=== PATIENT | female | born 1955 | race Two or more races ===

== ENCOUNTER 2017-02-02 06:48 | Day surgery (SDC) | payer OTHER ==
[2017-02-01 13:50] VITALS: Ht 149.9 cm; Wt 77.5 kg
--- NOTE | 2017-02-01 17:15 | PREOPHP ---
DATE OF ADMISSION: 02/02/2017 HISTORY OF PRESENT ILLNESS: This 62-year-old patient is admitted for elective cataract surgery of t he left eye. Patient has had progressive deterioration of vision in both eyes and 2 years ago under went cataract surgery of the right eye with good visual result. PAST MEDICAL HISTORY: The patient's systemic history is positive for insulin-dependent diabetes mookie litus for 10 years and systemic hypertension. CURRENT MEDICATIONS INCLUDE: 1. Insulin. 2. Metformin. 3. Simvastatin. 4. Benazepril. 5. Aspirin (discontinued 1 week prior to surgery). ALLERGIES: THERE ARE NO KNOWN ALLERGIES. PHYSICAL EXAMINATION: Visual acuity best corrected is 20/25 in the right eye and 20/200 in the left eye. Slit lamp examination reveals a posterior chamber intraocular lens in the right eye and an an terior cortical nuclear sclerotic and posterior subcapsular cataract in the left eye. Applanation t onometry is 17 mmHg in both eyes. Examination of the retina is within normal limits without evidenc e of diabetic retinopathy. DIAGNOSIS: Cataract, left eye. PLAN: Cataract extraction with lens implant, left eye. The risks and alternatives to the surgery h ave been discussed with the patient as well as the hope for improvement of visual acuity leading to greater ability to perform activities of daily living. Patient understands this and agrees to proce ed with surgery. Dictated By: JED PAUL/KI Conf#: [id number] DID#: [id number]
[~2017-02-02] VITALS: Ht 149.9 cm; Wt 77.5 kg
[2017-02-02] VITALS (9 sets, daily range): BP systolic 104–133; BP diastolic 56–79; PULSE 72–75; RESP 14–21
[~2017-02-02 06:48] MED LIST: CIPROFLOXACIN 0.3% 2.5 ML OPH OPER SCH; CYCLOPENTOLATE/PHENYLEPH 2 ML OPH OPER SCH; DICLOFENAC 0.1% 2.5 ML OPH OPER SCH; TROPICAMIDE 1% 2 ML OPH OPER SCH
[2017-02-02] MEDS ORDERED: LIDOCAINE 2% (SDV) 5 ML INJ ONE (07:00)
[2017-02-02] MEDS ORDERED: PROPOFOL 200 MG INJ ONE (07:00)
[2017-02-02] MEDS ORDERED: GLIM4TAB PO (07:40)
[2017-02-02] MEDS ORDERED: SIMV20TA PO (07:46)
[2017-02-02] MEDS ORDERED: ASPI-664 PO (07:46)
[2017-02-02] MEDS ORDERED: LEVEM SC (07:47)
[2017-02-02] MEDS ORDERED: METF1000 PO (07:47)
[2017-02-02] MEDS ORDERED: BENA40TA41 PO (07:47)
[2017-02-02] MEDS ORDERED: LIDOCAINE 4% (MPF) 5 ML INJ ONE (09:18)
[2017-02-02] MEDS ORDERED: EPINEPHrine 1 MG INJ ONE (09:18)
[2017-02-02] MEDS ORDERED: GENTAMICIN 80 MG INJ ONE (09:19)
[2017-02-02] MEDS ORDERED: CEFAZOLIN 1 GM INJ ONE (09:19)
[2017-02-02] MEDS ORDERED: CARBACHOL 0.01% 1.5 ML OPH INJ ONE (09:19)
[2017-02-02] MEDS ORDERED: HYALURONATE/CHONDROITIN 1ML OPH INJ ONE (09:20)
[2017-02-02] MEDS ORDERED: DEXAMETHASONE 4 MG/ML 1 ML INJ INJ ONE (09:25)
[2017-02-02] MEDS ORDERED: HYALURONATE/CHONDROITIN 1ML OPH INJ IO ONE (09:25)
[2017-02-02] MEDS ORDERED: CEFAZOLIN 1 GM INJ INJ ONE (09:25)
[2017-02-02] MEDS ORDERED: CARBACHOL 0.01% 1.5 ML OPH INJ IO ONE (09:25)
[2017-02-02] MEDS ORDERED: FENTAnyl 50 MCG/ML VIAL IV PRN ×2 (09:30)
[2017-02-02] MEDS ORDERED: EPHEDrine SULFATE 50 MG/5 ML SYG IV PRN (09:30)
[2017-02-02] MEDS ORDERED: LABETALOL HCL 20MG INJ IV PRN (09:30)
[2017-02-02] MEDS ORDERED: ONDANSETRON 4 MG INJ IV PRN (09:30)
[2017-02-02] MEDS ORDERED: hydrALAzine 20 MG INJ IV PRN (09:30)
[2017-02-02] MEDS ORDERED: ATROPINE 1 MG/10 ML SYRINGE IV PRN (09:30)
[2017-02-02] MEDS ORDERED: MIDAZOLAM 1 MG/ML 2 ML INJ IV PRN (09:30)
[2017-02-02] MEDS ORDERED: OXYCODONE/ACETAMINOPHEN (5/325) TAB PO PRN ×2 (09:30)
[2017-02-02] MEDS ORDERED: morphine (1 MG/ML) 10ML SYRINGE IV PRN ×3 (09:30)
[2017-02-02] MEDS ORDERED: HYDROmorphONE (0.2 MG/ML) 10ML SYG IV PRN ×3 (09:30)
[2017-02-02] MEDS ORDERED: MEPERIDINE 25 MG INJ IV PRN (09:30)
[2017-02-02] MEDS ORDERED: DIPHENHYDRAMINE 50 MG INJ IV PRN (09:30)
[2017-02-02] MEDS ORDERED: LIDOCAINE 1% (MPF) 10 ML INJ ONE (10:02)
--- NOTE | 2017-02-02 11:47 | OPR ---
DATE OF OPERATION: 02/02/2017 PREOPERATIVE DIAGNOSIS: Cataract, left eye. POSTOPERATIVE DIAGNOSIS: Cataract, left eye. SURGEON: Jed Hansen MD GENERAL SUPERVISOR: ANESTHESIA: Monitored anesthesia. ANESTHESIOLOGIST: Dr. Wells OPERATION: Cataract extraction with lens implant, left eye. PROCEDURE: The patient was brought to the operating room and placed on the table with an IV in plac e and the patient attached to an cut lace machine operator. Oxygen was given via face mask. After some intravenous sedation was administered, local anesthesia was given using Xylocaine 2% with epinephrine, mixed with Marcaine 0.5%. This was given in a lid block and retrobulbar injection. The patient was then prepped and draped in the usual sterile manner. A wire lid speculum was inserted between the lids of the left eye. A SuperBlade was used to enter th e anterior chamber at the corneoscleral limbus at the 10:30 o'clock position. A separate incision wa s made using a 3.0-mm keratome which entered the corneoscleral junction at the 12 o'clock position. Through this 3-mm opening, an irrigating cystotome was introduced into the anterior chamber. The kalpesh mber was filled with Viscoat and an anterior capsulotomy was performed. Balanced salt solution was t hen used for hydrodissection of the lens. A phacoemulsification handpiece was then brought into the field and introduced into the anterior chamber. The lens nucleus was emulsified using a deep groove and cracking the nucleus into quadrants. Following this, each quadrant was aspirated and emulsified at the pupillary margin. Following removal of the lens nucleus, it was noted there was a break in the posterior capsule and some formed vitreous presented at the lips of the wound. A limited anteri or vitrectomy was performed to remove formed vitreous from the anterior chamber and the lips of the wound. When this was done, it was noted that there was sufficient lens capsular support for posteri or chamber lens, and then following this a very limited removal of lens cortical material was perfor med prior to adding DisCoVisc. The 3-mm opening had its internal lips enlarged, and then the posterior chamber intraocular lens willa suring 21.5 diopters ([employer] model LI61AO) was then injected into the posterior chamber using the lens injector system. After the leading haptic was introduced into the capsular b ag and the lens optic was present in the center of the eye, the injector was removed and the trailin g haptic was grasped with non-toothed forceps and introduced into the capsular fold superiorly. A Si nskey hook was then used to rotate the intraocular lens so that the lips were oriented in the horizo ntal meridian. One 10-0 nylon suture was placed across the wound. Prior to tying, the irrigation/aspiration handpiece was reintroduced into the anterior chamber to re move the Viscoat. Miochol was instilled to constrict the pupil, and then the 10-0 nylon suture was t ied. The ends were cut short and then the knot was buried. Then, 0.5 mL of dexamethasone and 0.5 mL of Ancef were injected into the sub-Tenon space in the infe rior fornix. Ciloxan drops were then placed on the surface of the eye. The speculum was removed and a patch was applied. The patient then left the operating room in satisfactory condition. Dictated By: JED PAUL/KI Conf#: [id number] DID#: [id number]
== END 2017-02-02 11:30 | disposition home or self-care (01) ==
LOC: SDS 06:48
PROVIDERS: ATTEND Ophthalmology
DX: H25.12 Age-related nuclear cataract, left eye (principal); I10 Essential (primary) hypertension; E11.9 Type 2 diabetes mellitus without complications; Z79.4 Long term (current) use of insulin; E78.5 Hyperlipidemia, unspecified
CPT/HCPCS: 66984; 82962; J0171; J0690; J1100; J1580; V2632; Z7512; Z7610

== ENCOUNTER 2017-03-09 08:18 | Emergency (ER) | payer OTHER ==
[~2017-03-09] VITALS: Ht 149.9 cm; Wt 79.0 kg
[~2017-03-09 08:18] MED LIST changes: +ASPI-664 PO; +BENA40TA41 PO; -CIPROFLOXACIN 0.3% 2.5 ML OPH OPER SCH; -CYCLOPENTOLATE/PHENYLEPH 2 ML OPH OPER SCH; -DICLOFENAC 0.1% 2.5 ML OPH OPER SCH; +GLIM4TAB PO; +LEVEM SC; +METF1000 PO; +SIMV20TA PO; -TROPICAMIDE 1% 2 ML OPH OPER SCH
[2017-03-09 08:23] VITALS: Ht 149.9 cm; Wt 79.0 kg
--- NOTE | 2017-03-09 08:46 | ERA ---
ER Documentation Chief Complaint Date/Time DATE: 03/09/17 TIME: 08:39 Chief Complaint lt eye redness since last night , had cataract surgery last month HPI Patient is a 62-year-old female who presents complaining of a painful red eye starting this morning at approximately 8 AM (exam at 8:40 AM). Patient has a history of cataract surgery on February 02, [address] Yohannes Hansen. Patient states that her pain is 7 out of 10. Cannot describe the pain. Has not tried any remedies to relieve the pain to this point. Denies any changes or loss in vision, floaters, headache, ataxia, hearing loss, difficulty breathing or swelling. ROS All systems reviewed and are negative except as per history of present illness. Medications Home Meds Active Scripts Gentamicin Sulfate* (Gentamicin Sulfate* Ophth) 0.3% - 5 Ml Drops, 1 DROP LEFT EYE Q4 for 10 Days, EA Prov:RITA HUERTA PA-C 03/09/17 Acetaminophen* (Tylenol*) 325 Mg Tablet, 1 TAB PO Q8 Y for PAIN AND OR ELEVATED TEMP, #20 TAB Prov:RITA HUERTA PA-C 03/09/17 Reported Medications Insulin Detemir (Levemir) 100 Unit/1 Ml Vial, 20 UNIT SC QHS, VIAL 02/02/17 Benazepril Hcl* (Benazepril Hcl*) 40 Mg Tablet, 40 MG PO DAILY, #30 TAB 02/02/17 Metformin Hcl* (Metformin Hcl*) 1,000 Mg Tablet, 1000 MG PO WITH BREAKFAST DINNE , #30 TAB 02/02/17 Simvastatin* (Zocor*) 20 Mg Tablet, 20 MG PO QHS, #30 TAB 02/02/17 Aspirin (Low Dose Aspirin) 81 Mg Tablet.dr, 81 MG PO DAILY, #30 TAB 02/02/17 Glimepiride* (Glimepiride*) 4 Mg Tablet, 4 MG PO WITH BREAKFAST, TAB 02/02/17 Allergies Allergies: Coded Allergies: No Known Allergy (Unverified , 02/02/17) PMhx/Soc History of Surgery: Yes (GALL BLADDER, CATARACT RIGHT EYE) Anesthesia Reaction: No Hx Neurological Disorder: No Hx Respiratory Disorders: No Hx Cardiac Disorders: Yes (HTN, HIGH CHOLEST) Hx Psychiatric Problems: No Hx Miscellaneous Medical Probl: No Hx Alcohol Use: No Hx Substance Use: No Hx Tobacco Use: No Physical Exam Vitals Vital Signs Date Time Temp Pulse Resp B/P Pulse Ox O2 Delivery O2 Flow Rate FiO2 03/09/17 08:23 98.0 74 18 136/67 99 Physical Exam Const: Obese 62-year-old female Head: Atraumatic Eyes: Injected conjunctivae of the left eye. No ciliary injection bilaterally. Tenderness palpation of the inferior periorbital area of the left eye. Cup-to-disc ratio not clearly visualized with ophthalmoscope. Telemeter was measured at 17 measured twice in the left eye and 19 and 17 on the right side. Fluorescein staining revealed no for body or epithelial abrasions. ENT: Normal External Ears, Nose and Mouth. Neck: Full range of motion..~ No meningismus. Resp: Clear to auscultation bilaterally Cardio: Regular rate and rhythm, no murmurs Abd: Soft, non tender, non distended. Normal bowel sounds Skin: No petechiae or rashes Back: No midline or flank tenderness Ext: No cyanosis, or edema Neur: Awake and alert Psych: Normal Mood and Affect Results 24 hrs Current Medications Medications (Trade) Dose Ordered Sig/Yandy Route PRN Reason Start Time Stop Time Status Last Admin Dose Admin Tetracaine HCl (Tetracaine 0.5% Steri-Unit Veronica) 1 drop ONCE ONCE BOTH EYES 03/09/17 09:00 03/09/17 09:01 DC Procedures/MDM Patient is a 62-year-old female presenting with an acute red painful eye 8-16 hours. Patient denies any discharge, fever, pruritus. Patient has history of cataract surgery in both eyes with the affected eye having surgery approximately 1 month ago on February 02. Patient's telemeter chest was within normal limits bilaterally. The fluorescein stain showed no epithelial defects. Spoke to Dr. 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 At this time I do not suspect there to be acute glaucoma or immediate endangerment of the eye. Advised the patient that she should follow-up with ophthalmology within the next 1-3 days. Will discharge home with topical gentamicin and oral acetaminophen for pain relief Departure Additional Instructions: Follow-up with ophthalmology as soon as possible RITA HUERTA PA-C Mar 09, 2017 08:46
[2017-03-09] MEDS ORDERED: TETRACAINE 0.5% 4 ML OPH BOTH EYES ONE (09:00)
[2017-03-09] MEDS ORDERED: ACET325T33 PO (09:26)
[2017-03-09] MEDS ORDERED: GENT5DRO28 LEFT EYE (09:26)
== END 2017-03-09 09:47 | disposition home or self-care (01) ==
LOC: FTE 08:18
DX: H57.8 Other specified disorders of eye and adnexa (principal); I10 Essential (primary) hypertension; E11.9 Type 2 diabetes mellitus without complications; Z79.4 Long term (current) use of insulin; Z79.84 Long term (current) use of oral hypoglycemic drugs; Z79.82 Long term (current) use of aspirin
CPT/HCPCS: Z7502; Z7610; 99283